=== PATIENT | female | born 1985 | race Caucasian/White ===

== ENCOUNTER → 2018-01-25 16:15 | Outpatient (CLI) | payer OTHER, SELFPAY ==
[2018-01-25 19:04] LABS: Chlamydia Trachomatis by PCR Negative (Negative); Neisserai gonorrhoeae by PCR Negative (Negative); Probe Check PASS; Sample Adequacy Control PASS; Specimen Processing Control PASS
[2018-01-28 10:20] LABS: HPV Reflexed? NOT INDICATED
== END ==
PROVIDERS: Visit Provider Obstetrics & Gynecology
DX: Z12.4 Encounter for screening for malignant neoplasm of cervix (principal); Z11.3 Encounter for screening for infections with a predominantly sexual mode of transmission
CPT/HCPCS: 87491; 87591; 88175; G0145

== ENCOUNTER → 2018-02-09 11:06 | Outpatient (CLI) | payer OTHER, SELFPAY ==
[2018-02-09 12:55] LABS: Color, Urine Yellow (Yellow); Glucose, Dipstick Normal (Normal); Ketone-Dipstick Negative (Negative); Leukocyte Esterase-Dipstick Negative /ul (Negative); Nitrite-Dipstick Negative (Negative); Occult Blood-Urine Negative /ul (Negative); Protein-Dipstick Negative (Negative); Specific Gravity, Urine 1.005 (1.002-1.030); Urine Bilirubin Dipstick Negative (Negative); Urine Clarity Clear (Clear); Urine Urobilinogen Normal (Normal)
[2018-02-09 13:06] LABS: Absolute Neutrophil Count 5.6 X10^3/uL (2.0-7.7); Basophil# 0.02 X10^3/uL; Basophil% 0.3 % (0-1); Eosinophil# 0.01 X10^3/uL; Eosinophils% 0.1 % (0-5); Hematocrit 34.7 % (37-47); Hemoglobin 11.8 g/dl (12.0-15.0); Lymphocyte % 16.3 % (19-41); Mean Corpuscular Hgb 27.8 pg (27.0-32.0); Mean Corpuscular Volume 81.6 fL (81-99); Mean Platelet Vol. 10.7 fl (6.2-12.0); Monocyte# 0.48 X10^3/uL; Monocyte% 6.5 % (0-10); Neutrophil # 5.62 X10^3/uL (2.7-7.7); Neutrophil % 76.5 % (47-70); Platelet Count 259 K/mm3 (150-450); RBC Distribution Width CV 12.7 % (11.6-14.6); RBC Distribution Width SD 37.4 fl (35.1-43.9); Red Blood Count 4.25 M/mm3 (4.2-5.4); White Blood Count 7.4 K/mm3 (4.4-11.0)
[2018-02-09 13:07] LABS: Amphetamine Urine VISTA NEGATIVE (<1000 ng/mL); Barbiturate Urine VISTA NEGATIVE (< 200 ng/mL); Benzodiazepine Urine VISTA NEGATIVE (< 200 ng/mL); Cocaine Urine VISTA NEGATIVE (< 300 ng/mL); Ecstacy Urine VISTA NEGATIVE (< 500 ng/mL); Methadone Urine VISTA NEGATIVE (< 300 ng/mL); PCP Urine VISTA NEGATIVE (< 25 ng/mL); THC Urine VISTA NEGATIVE (< 50 ng/mL); Vista UDS pH Range 7
[2018-02-09 13:14] LABS: POSITIVE COUNT NO; POSITIVE DIFFERENTIAL NO; POSITIVE MORPHOLOGY NO
[2018-02-09 13:19] LABS: Thyroid Stim Hormone (TSH) 0.49 uIU/mL (0.358-3.74)
[2018-02-10 10:19] LABS: HEPATITIS B SURFACE AG Negative (Negative); Hep C Antibodies <0.1 s/co ratio (0.0-0.9)
[2018-02-10 11:27] LABS: HIV - WCH Non-Reactive (Nonreactive)
[2018-02-12 01:20] LABS: Prenatal RPR NONREACTIVE (NONREACTIVE)
== END ==
PROVIDERS: Visit Provider Obstetrics & Gynecology
DX: Z34.81 Encounter for supervision of other normal pregnancy, first trimester (principal)
CPT/HCPCS: 36415; 80307; 81002; 84443; 85025; 86703; 86762; 86803; 87340

== ENCOUNTER → 2018-05-28 11:08 | Outpatient (CLI) | payer OTHER, SELFPAY ==
[2018-05-28 13:36] LABS: Hematocrit 33.3 % (37-47); Mean Corpuscular Hgb 28.4 pg (27.0-32.0); Mean Corpuscular Volume 85.8 fL (81-99); Mean Platelet Vol. 10.3 fl (6.2-12.0); Platelet Count 255 K/mm3 (150-450); RBC Distribution Width CV 12.9 % (11.6-14.6); RBC Distribution Width SD 39.6 fl (35.1-43.9); Red Blood Count 3.88 M/mm3 (4.2-5.4); White Blood Count 9.6 K/mm3 (4.4-11.0)
[2018-05-28 13:41] LABS: Scan Indicated on CBC? Y/N NO
[2018-05-28 13:42] LABS: Glucose Challenge Gest 1H 50g 88 mg/dL (70-140)
== END ==
PROVIDERS: Visit Provider Obstetrics & Gynecology
DX: Z34.83 Encounter for supervision of other normal pregnancy, third trimester (principal)
CPT/HCPCS: 82950; 85027

== ENCOUNTER → 2018-07-23 13:14 | Outpatient (CLI) | payer OTHER, SELFPAY ==
[2018-07-23 16:23] LABS: Group B Strep DNA By PCR POSITIVE (Negative); Probe Check PASS
== END ==
PROVIDERS: Visit Provider Obstetrics & Gynecology
DX: Z36.85 Encounter for antenatal screening for Streptococcus B (principal)
CPT/HCPCS: 87653

== ENCOUNTER 2018-08-17 09:55 | Inpatient (IN) | payer OTHER, SELFPAY ==
[2018-08-10 09:22] VITALS: BMI 34.9
[2018-08-17] VITALS (15 sets, daily range): BP systolic 102–199; BP diastolic 59–84; PULSE 67–86; RESP 12–16; TEMP 36.1–36.7; O2SAT 98–100; BMI 35.0
[2018-08-17] MEDS: Lactated Ringers 1,000 ML 999 ML IV (11:15)
[2018-08-17 11:34] LABS: Absolute Lymphocyte Count 1.48 X10^3/ul (0.83-4.51); Absolute Neutrophil Count 7.8 X10^3/uL (2.0-7.7); Basophil# 0.01 X10^3/uL; Basophil% 0.1 % (0-1); Eosinophil# 0.03 X10^3/uL; Eosinophils% 0.3 % (0-5); Hematocrit 36.3 % (37-47); Hemoglobin 12.2 g/dl (12.0-15.0); Lymphocyte # 1.48 X10^3/ul (4.0); Lymphocyte % 14.6 % (19-41); Mean Corp Hgb Conc 33.6 g/gl (32-36); Mean Corpuscular Hgb 28.3 pg (27.0-32.0); Mean Corpuscular Volume 84.2 fL (81-99); Mean Platelet Vol. 10.3 fl (6.2-12.0); Monocyte# 0.71 X10^3/uL; Neutrophil # 7.83 X10^3/uL (2.7-7.7); Neutrophil % 77.3 % (47-70); Platelet Count 241 K/mm3 (150-450); RBC Distribution Width CV 12.5 % (11.6-14.6); RBC Distribution Width SD 37.9 fl (35.1-43.9); Red Blood Count 4.31 M/mm3 (4.2-5.4); White Blood Count 10.1 K/mm3 (4.4-11.0)
[2018-08-17 11:38] LABS: POSITIVE COUNT NO; POSITIVE DIFFERENTIAL NO; POSITIVE MORPHOLOGY NO
[2018-08-17 11:55] LABS: Partial Thromboplast Time 25.7 Seconds (24.1-36.2); Prothrombin Time (Protime)PT. 13.5 SECONDS (11.7-14.9)
[2018-08-17] MEDS: Sodium Citrate/Citric Acid 30 ML UDC PO (11:55)
[2018-08-17] MEDS: Cefazolin 2 GM in 0.9% Normal Saline 100 ML IV (12:04)
--- NOTE | 2018-08-17 12:07 | PCM.OPRPT ---
Report of Operation Date of Procedure: 08/17/18 Pre-Operative Diagnosis: Previous section for repeat and requests sterilization Post-Operative Diagnosis: Same Surgery/Procedure Performed:: Repeat Low Transverse sSection and bilateral Salpingectomy Description of Surgical Findings:: Normal appearing uterus, ovaries, and fallopian tubes. Live female in vertex presentation weighing 8lb7oz. Amniotic fluid clear. APGARs 8/9. network services project manager: Katherine Villagomez Type of Anesthesia:: Spinal Anesthesiologist: Gelacio Camp Special Medications: none Specimen's removed: fallopian tubes Drains: fernandez Estimated Blood Loss (mL): 500cc Fluids Replaced: 1500cc LR Description of Procedure: Zohreh reafirmed her desire for permanent sterilization prior to the procedure. SHe was taken to the OR with IV running. Spinal anesthesia was introduced without complication. She was given two grams of Ancef intravenously prior to the procedure for surgical prophylaxis. She was prepped and draped in the supine position with a leftward tilt. A fernandez catheter was placed. Once anesthesia was deemed adequate a Pfannensteil skin incision was made through the previous scar. The underlying subcutaneous tissue was dissected down to the level of fascia using sharp and blunt dissection. The fascia was incised horizontally in the midline and this incision was enlarged bilaterally with the Irene scissors. The upper portion of the fascial defect was then grasped with two Jack clamps, elevated and the rectus muscles dissected off with sharp and blunt dissection. In a similar fashion the rectus muscles were dissected off the lower fascial defect. The rectus muscles were in the midline, the peritoneum identified and entered bluntly. The peritoneal defect was enlarged using blunt retraction. A bladder blade was the placed. A bladder flap created. The bladder blade replaced. The lower uterine segment was then incised in a transverse fashion with the scalpel. Once the cavity was entered it was enlarged using blunt lateral and superior traction. The baby's head was then delivered atraumatically followed by the body. The mouth was suctioned with a bulb suction. There was an active cry within one minute of delivery. Delayed cord clamping was employed. The baby was then handed off to the waiting nurse for evaluation. The placenta was delivered manually, the uterus exteriorized, and cleared of all clot and membranes. The uterus was then closed in two layers with #1 Vicryl suture. The right fallopian tube was then grasped with a Guthrie clamp and elevated. A rent was made in the mesosalpinx with the bovie. The right fallopian tube was then clamped at the proximal end and the mesosalpinx from the fimbria end to the rent clamped with a Ghada clamp. The tube was then amputated. The pedicles were tied with 2-0 vicryl suture. In a similar fashion the left fallopian tube was dissected and removed. The posterior cul de sac was cleared of all clot and fluid and the uterus returned to the abdomen. The uterine incision was reinspected and found to be hemostatic. The peritoneum was closed with a running stich of 2-0 Vicryl. The rectus muscles were reapproximated with interrupted sutures of 0-Vicryl. The fascia was closed with a running stitch of #1. Stratofix suture. The subcutaneous tissue was closed with 2-0 Vicryl The skin was closed with a subcuticular stitch of 4-0 Monocryl. Sponge, lap, needle and instrument counts were correct. She was taken to the recovery room in stable condition. Grafts/Implants Used: none - Complications none - Admit VTE Documentation VTE Present on Admission: No VTE Mechan Device Prophylaxis: SCD's VTE Pharm Prophylaxis ordered?: No
[2018-08-17] MEDS: Lactated Ringers 1,000 ML 150 ML IV (12:10)
--- NOTE | 2018-08-17 12:22 | FALS_PTH ---
PATIENT: BRIA GONZALEZ LOC: [facility] U#:[id number] AGE/SX: 33/F ROOM: WP006 RE08/17/[address]: Dr. Artie Betancourt MD : 1985 BED: 1 DIS: 08/19/2018 SPEC #: [id number] RECD: 08/17/18 13:29 STATUS: HAI SAE #: [id number] ZAYDA: 08/17/18 12:[address]: Artie Betancourt DEPT: SURGICAL PATHOLOGY RECD BY: Jered Coleman ENTERED: 08/17/18 14:06 SP TYPE: FALL TUBES OTHR DR: No Primary Care Phys Tissues: Fallopian tube Procedures: Surgery Specimen Level II HEADER OPERATION: Tubal ligation PRE-OP DIAGNOSIS: Desired sterilization TISSUE SUBMITTED: Fallopian tubes, suture in right tube MICROSCOPIC DIAGNOSIS Right and left fallopian tubes, bilateral salpingectomies: Complete segment of right fallopian tube with benign paratubal cyst. Complete segment of left fallopian tube with benign paratubal cyst. AM:jason 08/18/18 MICROSCOPIC DESCRIPTION Slides are reviewed. GROSS DESCRIPTION Received is one container labeled with the patient's name and designated left fallopian tube with suture, right fallopian tube no suture. The specimen consists of two tubular pieces of centeno soft tissue with the left tube identified by a suture and measures 4.5 cm in length and 0.5 cm in diameter. The right tube without suture measures 2 cm in length and 0.5 cm in diameter. A paratubal cyst is noted adjacent to the right fallopian tube measuring 1.5 cm in greatest dimension. The entire specimen is submitted in two cassettes as follows: 1 - right fallopian tube, 2 - left fallopian tube. Both pieces will be sectioned at the time of embedding. / SJ:jason 08/17/18 TC:5 CPT: 05104 x2
[2018-08-17] MEDS: Oxytocin 30 units/NS 500 ml 30 UNITS/500 ML IV.SOLN 167 UNITS IV (12:23)
[2018-08-17] MEDS: 0.9% Saline Lock 10 ML Syringe IV (18:05)
[2018-08-17] MEDS: Lactated Ringers 1,000 ML 100 ML IV (18:05)
[2018-08-17] MEDS: Ketorolac 30 MG/ML Syringe IV (18:05)
[2018-08-17] MEDS: Cefazolin 1 GM/50 ML BAG IV (19:22)
[2018-08-18] VITALS (10 sets, daily range): BP systolic 104–124; BP diastolic 63–73; PULSE 66–87; RESP 16–18; TEMP 36.4–37.2; O2SAT 98–100
[2018-08-18] MEDS: Ketorolac 30 MG/ML Syringe IV ×4 (00:16→18:42)
[2018-08-18] MEDS: Acetaminophen 500 MG Tablet 1000 MG PO (03:10)
[2018-08-18] MEDS: Cefazolin 1 GM/50 ML BAG IV (03:10)
[2018-08-18] MEDS: Lactated Ringers 1,000 ML 100 ML IV (03:11)
[2018-08-18 06:11] LABS: Hemoglobin 10.9 g/dl (12.0-15.0); Mean Corpuscular Hgb 27.8 pg (27.0-32.0); Mean Corpuscular Volume 84.2 fL (81-99); Mean Platelet Vol. 9.8 fl (6.2-12.0); Platelet Count 213 K/mm3 (150-450); RBC Distribution Width CV 12.9 % (11.6-14.6); RBC Distribution Width SD 39.2 fl (35.1-43.9); Red Blood Count 3.92 M/mm3 (4.2-5.4); White Blood Count 10.9 K/mm3 (4.4-11.0)
[2018-08-18 06:25] LABS: Scan Indicated on CBC? Y/N NO
[2018-08-18] MEDS: Ferrous Gluconate 324 MG Tablet 325 MG PO (08:50)
[2018-08-18] MEDS: 0.9% Saline Lock 10 ML Syringe IV ×3 (08:51→18:42)
--- NOTE | 2018-08-18 09:42 | PCM.PN.OB ---
Subjective: No complaints. Tolerating PO well. Breast feeding. Bleeding light. Objective: Afeb VSS Hgb appropriate POD#1. - Physical Exam General: Alert, Oriented x3, Cooperative, No apparent distress Lungs: Clear to auscultation, Normal air movement Cardiovascular: Regular rate, Regular Rhythm Abdomen: Soft, Non Tender, Non-Distended, - - Fundus firm, incision dressing dry Extremities: No edema Skin: No rashes Neurological: Neuro grossly intact Psych/Mental Status: Normal Affect Comment: Lochia light Vital Signs Temp Pulse Resp BP Pulse Ox 98.0 F 72 16 104/63 100 08/18/18 09:13 08/18/18 09:13 08/18/18 09:13 08/18/18 09:13 08/18/18 09:13 Oxygen Delivery Method Room Air Weight: 223 lb 12.307 oz Body Mass Index (BMI) 35.0 Intake and Output for Last 24 Hours 08/16/18 08/17/18 08/18/18 23:59 23:59 23:59 Intake Total 3656 / 3656 1660 / 1660 Output Total 800 / 800 1700 / 1700 Balance 2856 / 2856 -40 / -40 Laboratory Tests Past 24 Hrs 08/17/18 08/17/18 08/17/18 11:15 11:15 11:15 WBC 10.1 RBC 4.31 Hgb 12.2 Hct 36.3 L MCV 84.2 MCH 28.3 MCHC 33.6 RDW 12.5 RDW Differential 37.9 Plt Count 241 MPV 10.3 Immature Gran % (Auto) 0.700 Neut % (Auto) 77.3 H Lymph % (Auto) 14.6 L [place] % (Auto) 7.0 Eos % (Auto) 0.3 Baso % (Auto) 0.1 Absolute Neuts (auto) 7.8 H Absolute Lymphs (auto) 1.48 Total Counted Not Reportable PT 13.5 INR 1.0 APTT 25.7 Blood Type A POSITIVE Antibody Screen NEGATIVE 08/18/18 05:20 WBC 10.9 RBC 3.92 L Hgb 10.9 L Hct 33.0 L MCV 84.2 MCH 27.8 MCHC 33.0 RDW 12.9 RDW Differential 39.2 Plt Count 213 MPV 9.8 Immature Gran % (Auto) Neut % (Auto) Lymph % (Auto) [place] % (Auto) Eos % (Auto) Baso % (Auto) Absolute Neuts (auto) Absolute Lymphs (auto) Total Counted PT INR APTT Blood Type Antibody Screen Medical Necessity - Tobacco Use Smoking Status: Former smoker Assessment/Plan Doing well on POD#1. D/C fernandez catheter later today. Continue routine PO care.
[2018-08-18] MEDS: Prenatal Vits Tablet 1 TABLET PO (12:51)
[2018-08-18] MEDS: oxyCODONE 5 MG Tablet PO ×2 (14:04→18:41)
[2018-08-18 14:38] LABS: Pathology Specimen OB SEE PATHOLOGY REPORT
[2018-08-18] MEDS: Ferrous Gluconate 324 MG Tablet PO (18:42)
[2018-08-18] MEDS: Senna/Docusate Sodium 1 Tablet PO (18:43)
[2018-08-19] MEDS: 0.9% Saline Lock 10 ML Syringe IV ×3 (00:18→12:09)
[2018-08-19] MEDS: Ketorolac 30 MG/ML Syringe IV ×3 (00:18→12:09)
[2018-08-19] MEDS: oxyCODONE 5 MG Tablet PO ×2 (00:18→12:09)
[2018-08-19 01:50] VITALS: BP 126/72; PULSE 84; RESP 17; TEMP 37.2
--- NOTE | 2018-08-19 07:26 | PCM.PN.OB ---
Subjective: No specific complaints. Pain reasonably controlled. Bleeding light. Breast feeding. Objective: Afeb VSS - Physical Exam General: Alert, Oriented x3, Cooperative, No apparent distress Lungs: Clear to auscultation, Normal air movement Cardiovascular: Regular rate, Regular Rhythm Abdomen: Soft, Non Tender, Non-Distended, - - Incision dressing dry Extremities: No edema Skin: No rashes Neurological: Neuro grossly intact Psych/Mental Status: Normal Affect Comment: Lochia light Vital Signs Temp Pulse Resp BP Pulse Ox 99.0 F 84 17 126/72 H 99 08/19/18 01:50 08/19/18 01:50 08/19/18 01:50 08/19/18 01:50 08/18/18 20:35 Oxygen Delivery Method Room Air Weight: 223 lb 12.307 oz Body Mass Index (BMI) 35.0 Intake and Output for Last 24 Hours 08/17/18 08/18/18 08/19/18 23:59 23:59 23:59 Intake Total 3656 / 3656 2640 / 2640 Output Total 800 / 800 3200 / 3200 Balance 2856 / 2856 -560 / -560 Medical Necessity - Tobacco Use Smoking Status: Former smoker Assessment/Plan Doing well on POD#2 s/p repeat C/S and bilateral salpingectomy. Cleared for discharge home today. Home going instructions and warnings given.
--- NOTE | 2018-08-19 07:32 | DCINST_ITS ---
Discharge Diet: No Restrictions Discharge Activity: Return to Normal Activity, May Not Drive, May not drive while taking narcotic pain medications., May Shower Return to work on:: 10/19/18 May shower in (days): 0 May resume sexual activity in: 4-6 weeks Call your doctor if your incision/area has: Sudden Increased Bleeding, Increased Pain/ Swelling, Increased Redness, Foul Smelling Discharge, Swelling at the incision site Call your doctor if you observe: Fever of 101 or Higher, Inability to urinate, Inability to have a bowel movement, Using more than one pad per hour, Shortness of breath, Chest pain, Calf discomfort, Uncontrolled pain Remove Dressing in (days):: 2 Cleanse incision/area with: Soap & Water Additional Instructions: If you experience any of the following, contact your healthcare provider. * Bleeding that soaks a pad every hour for 2 hours * Fever 100.4 or higher * Unrelieved incision or abdominal pain * Swelling, redness, discharge or bleeding from your incision or episiotomy site * Your incision begins to separate * Problems urinating (including inability to urinate or burning while uri nating). * Visual changes * Severe headache * Flu-like symptoms * Pain or redness in one of both of your breasts * Pain, warmth, tenderness or swelling in your legs, especially the calf area * Frequent nausea and vomiting * Symptoms of depression or anxiety If you experience any of the following, call 911 or go to the nearest Emergency Room. * Chest pain * Problems breathing * Seizure activity * Partial or complete paralysis of a body part, slurred speech, weakness or drooping of the face, or a sudden inability to walk or hold your balance Allergies/Adverse Reactions: Allergies No Known Allergies Allergy (Verified 08/17/18 10:07) Medications to take at Discharge Vits [Prenatabs FA ] 1 tablet PO DAILY 12/03/14 Ferrous Gluconate 325 mg PO BIDCM 08/10/18 Ibuprofen 600 mg PO 4X/DAY #30 tab 08/19/18 Oxycodone [Oxyir] 5 - 10 mg PO Q4H PRN PRN 7 Days #20 tab 08/19/18 The following prescriptions were given: Oxycodone [Oxyir] 5 - 10 mg PO Q4H PRN PRN 7 Days #20 tab PRN Reason: Mod-Severe Pain (4-06/30) Ibuprofen 600 mg PO 4X/DAY #30 tab Follow-Up: Call to make an appointment with your doctor for an incision check in 1-2 weeks. You will also need a 6 week post- follow up appointment. Test results from this visit will be discussed in further detail at your follow- up appointment, if applicable. Please Follow Up With: Artie Betancourt MD When: one week Primary Care Physician: Care Physician,No Primary [Primary Care Provider] - Proposed Discharge Date: 08/19/18
--- NOTE | 2018-08-19 07:32 | PCM.DC.SUM ---
Discharge Date and Diagnosis Date of Admission: 08/17/18 Date of Discharge: 08/19/18 - Primary Discharge Diagnosis S/P repeat C/S and bilateral salpingectomy Hospital Course and Treatment Operations: - - Repeat C/S and bilateral salpingectomy Summary of Care Provided: The patient is a 33 year old F [admitted for scheduled repeat ZC/S and bilateral salpingectomy. These were performed without complication. Post operative course was unremarkable. Discharged home on POD#2.] - Physical Exam Vital Signs Temp Pulse Resp BP Pulse Ox 99.0 F 84 17 126/72 H 99 08/19/18 01:50 08/19/18 01:50 08/19/18 01:50 08/19/18 01:50 08/18/18 20:35 Oxygen Delivery Method Room Air Weight: 223 lb 12.307 oz Body Mass Index (BMI) 35.0 Intake and Output for Last 24 Hours 08/17/18 08/18/18 08/19/18 23:59 23:59 23:59 Intake Total 3656 / 3656 2640 / 2640 Output Total 800 / 800 3200 / 3200 Balance 2856 / 2856 -560 / -560 Discharge Diet: No Restrictions Discharge Activity: Return to Normal Activity, May Not Drive, May not drive while taking narcotic pain medications., May Shower Return to work on:: 10/19/18 May shower in (days): 0 May resume sexual activity in: 4-6 weeks Call your doctor if your incision/area has: Sudden Increased Bleeding, Increased Pain/ Swelling, Increased Redness, Foul Smelling Discharge, Swelling at the incision site Call your doctor if you observe: Fever of 101 or Higher, Inability to urinate, Inability to have a bowel movement, Using more than one pad per hour, Shortness of breath, Chest pain, Calf discomfort, Uncontrolled pain Remove Dressing in (days):: 2 Cleanse incision/area with: Soap & Water Home Medications: Medications to take at Discharge Vits [Prenatabs FA ] 1 tablet PO DAILY 12/03/14 Ferrous Gluconate 325 mg PO BIDCM 08/10/18 Ibuprofen 600 mg PO 4X/DAY #30 tab 08/19/18 Oxycodone [Oxyir] 5 - 10 mg PO Q4H PRN PRN 7 Days #20 tab 08/19/18 Following Prescrptions Were Given to Patient: Oxycodone [Oxyir] 5 - 10 mg PO Q4H PRN PRN 7 Days #20 tab PRN Reason: Mod-Severe Pain (-06/30) Ibuprofen 600 mg PO 4X/DAY #30 tab Primary Care Physician: Care Physician,No Primary [Primary Care Provider] - Please Follow Up With: Artie Betancourt MD When: one week Disposition: Home Minutes spent on discharge:: 15 Patient Condition:: Good Medical Necessity - Tobacco Use Smoking Status: Former smoker Meaningful Use Info Meaningful Use Diagnoses (Choose all that apply): None applicable
[2018-08-19 08:10] VITALS: BP 122/77; PULSE 78; RESP 16; TEMP 36.6; O2SAT 98
[2018-08-19] MEDS: Ferrous Gluconate 324 MG Tablet PO (10:06)
[2018-08-19] MEDS: Prenatal Vits Tablet 1 TABLET PO (10:06)
--- OUTSIDE RECORDS SUMMARY | 2018-09-29 01:11 | XMS RPT_ITS ---
:1985 Author Organization [facility] Care Team Providers Name Role Phone Artie Betancourt Attending Unavailable Primay Care Physicia, No Primary Care Unavailable Seals, Artie Attending Unavailable Primay Care Physicia, No Primary Care Unavailable Seals, Artie Attending Unavailable Primay Care Physicia, No Primary Care Unavailable Seals, Artie Attending Unavailable Primay Care Physicia, No Primary Care Unavailable SealsArtie Admitting Unavailable Seals, Artie Attending Unavailable Primay Care Physicia, No Primary Care Unavailable SealsArtie Referring Unavailable PROBLEMS PROBLEMS DATE TYPE CONDITION / CODE ATTENDING STATUS SOURCE 08/20/2018 Unknown G89.18 - Other acute Seals, Artie Active [facility] postprocedural pain [facility] / G89.18(ICD-10) Hospital Repository 07/23/2018 Unknown Z36.85 - Encounter Artie Betancourt for Community screening for Hospital Streptococcus B / Repository Z36.85(ICD-10) 05/28/2018 Unknown Z34.83 - Encounter SealArtie santillan Active [facility] for supervision of Community other normal Hospital , third Repository trimester / Z34.83(ICD-10) 02/09/2018 Unknown Z34.81 - Encounter SealArtie santillan Active [facility] for supervision of Community other normal Hospital , first Repository trimester / Z34.81(ICD-10) 01/25/2018 Unknown Z12.4 - Encounter SealsArtie for screening for Community malignant neoplasm Hospital of cervix / Repository Z12.4(ICD-10) 01/25/2018 Unknown Z11.3 - Encounter SealArtie santillan for screening for Community infections with a Hospital predominantly sexual Repository mode of transmission / Z11.3(ICD-10) PROCEDURES PROCEDURES No Procedure Records FoundRESULTS RESULTS DISCHARGE SUMMARY Observed: 08/19/2018 Status: F Source: [place] 7:34 AM [facility] REPOSITORY [facility] Medical Records Department [address] [place] [address] Discharge Summary 08/19/18 0732 MR#: [id number] Acct: [id number] Name: BRIA BARRY Rep #: [id number] : 1985 33 From: Artie Betancourt MD PCP: Care Physician, No Primary Status: ADM IN Location: [place] [address] Discharge Date and Diagnosis Date of Admission: 08/17/18 Date of Discharge: 08/19/18 - Primary Discharge Diagnosis S/P repeat C/S and bilateral salpingectomy Hospital Course and Treatment Operations: - - Repeat C/S and bilateral salpingectomy Summary of Care Provided: The patient is a 33 year old F [admitted for scheduled repeat ZC/S and bilateral salpingectomy. These were performed without complication. Post operative course was unremarkable. Discharged home on POD#2.] - Physical Exam Vital Signs Temp Pulse Resp BP Pulse Ox 99.0 F 84 17 126/72 H 99 08/19/18 01:50 08/19/18 01:50 08/19/18 01:50 08/19/18 01:50 08/18/18 20:35 Oxygen Delivery Method Room Air Weight: 223 lb 12.307 oz Body Mass Index (BMI) 35.0 Intake and Output for Last 24 Hours Intake Total 3656 / 3656 2640 / 2640 Output Total 800 / 800 3200 / 3200 Balance 2856 / 2856 -560 / -560 Discharge Diet: No Restrictions Discharge Activity: Return to Normal Activity, May Not Drive, May not drive while taking narcotic pain medications., May Shower Return to work on:: 10/19/18 May shower in (days): 0 May resume sexual activity in: 4-6 weeks Call your doctor if your incision/area has: Sudden Increased Bleeding, Increased Pain/ Swelling, Increased Redness, Foul Smelling Discharge, Swelling at the incision site Call your doctor if you observe: Fever of 101 or Higher, Inability to urinate, Inability to have a bowel movement, Using more than one pad per hour, Shortness of breath, Chest pain, Calf discomfort, Uncontrolled pain Remove Dressing in (days):: 2 Cleanse incision/area with: Soap AND Water Home Medications: Medications to take at Discharge Vits [Prenatabs FA ] 1 tablet PO DAILY 12/03/14 Ferrous Gluconate 325 mg PO BIDCM 08/10/18 Ibuprofen 600 mg PO 4X/DAY #30 tab 08/19/18 Oxycodone [Oxyir] 5 - 10 mg PO Q4H PRN PRN 7 Days #20 tab 08/19/18 Following Prescrptions Were Given to Patient: Oxycodone [Oxyir] 5 - 10 mg PO Q4H PRN PRN 7 Days #20 tab PRN Reason: Mod-Severe Pain () Ibuprofen 600 mg PO 4X/DAY #30 tab Primary Care Physician: Care Physician,No Primary [Primary Care Provider] - Please Follow Up With: Artie Betancourt MD When: one week Disposition: Home Minutes spent on discharge:: 15 Patient Condition:: Good Medical Necessity - Tobacco Use Smoking Status: Former smoker Meaningful Use Info Meaningful Use Diagnoses (Choose all that apply): None applicable 08/19/18 0334 <Electronically signed by Artie Betancourt MD> Date Artie Betancourt MD Cosigner Signature (if applicable): Date CC: No Primary Care Physician; Artie Betancourt MD Signed DISCHARGE INSTRUCTION Observed: 08/19/2018 Status: F Source: [place] 7:32 AM [facility] REPOSITORY [facility] Medical Records Department [address] [place] [address] Instructions for Home/Discharge Instructions 08/19/18 0731 MR#: [id number] Acct: [id number] Name: BRIA BARRY Rep #: [id number] : 1985 33 From: Artie Betancourt MD PCP: Care Physician, No Primary Status: ADM IN Discharge Diet: No Restrictions Discharge Activity: Return to Normal Activity, May Not Drive, May not drive while taking narcotic pain medications., May Shower Return to work on:: 10/19/18 May shower in (days): 0 May resume sexual activity in: 4-6 weeks Call your doctor if your incision/area has: Sudden Increased Bleeding, Increased Pain/ Swelling, Increased Redness, Foul Smelling Discharge, Swelling at the incision site Call your doctor if you observe: Fever of 101 or Higher, Inability to urinate, Inability to have a bowel movement, Using more than one pad per hour, Shortness of breath, Chest pain, Calf discomfort, Uncontrolled pain Remove Dressing in (days):: 2 Cleanse incision/area with: Soap AND Water Additional Instructions: If you experience any of the following, contact your healthcare provider. * Bleeding that soaks a pad every hour for 2 hours * Fever 100.4 or higher * Unrelieved incision or abdominal pain * Swelling, redness, discharge or bleeding from your incision or episiotomy site * Your incision begins to separate * Problems urinating (including inability to urinate or burning while urinating). * Visual changes * Severe headache * Flu-like symptoms * Pain or redness in one of both of your breasts * Pain, warmth, tenderness or swelling in your legs, especially the calf area * Frequent nausea and vomiting * Symptoms of depression or anxiety If you experience any of the following, call 911 or go to the nearest Emergency Room. * Chest pain * Problems breathing * Seizure activity * Partial or complete paralysis of a body part, slurred speech, weakness or drooping of the face, or a sudden inability to walk or hold your balance Allergies/Adverse Reactions: Allergies No Known Allergies Allergy (Verified 08/17/18 10:07) Medications to take at Discharge Vits [Prenatabs FA ] 1 tablet PO DAILY 12/03/14 Ferrous Gluconate 325 mg PO BIDCM 08/10/18 Ibuprofen 600 mg PO 4X/DAY #30 tab 08/19/18 Oxycodone [Oxyir] 5 - 10 mg PO Q4H PRN PRN 7 Days #20 tab 08/19/18 The following prescriptions were given: Oxycodone [Oxyir] 5 - 10 mg PO Q4H PRN PRN 7 Days #20 tab PRN Reason: Mod-Severe Pain (4-06/30) Ibuprofen 600 mg PO 4X/DAY #30 tab Follow-Up: Call to make an appointment with your doctor for an incision check in 1-2 weeks. You will also need a 6 week post- follow up appointment. Test results from this visit will be discussed in further detail at your follow-up appointment, if applicable. Please Follow Up With: Artie Betancourt MD When: one week Primary Care Physician: Care Physician,No Primary [Primary Care Provider] - Proposed Discharge Date: 08/19/18 08/19/18 0732 <Electronically signed by Artie Betancourt MD> Date Artie Betancourt MD CC: No Primary Care Physician OPERATIVE REPORT Observed: 08/18/2018 Status: F Source: [place] 9:48 AM [facility] REPOSITORY [facility] Medical Records Department [address] [place] [address] Operative Report 08/17/18 1207 MR#: [id number] Acct: [id number] Name: BRIA BARRY MARTIN Rep #: [id number] : 1985 33 From: Artie Betancourt MD PCP: Care Physician, No Primary Status: ADM IN Y Location: [id number] Report of Operation Date of Procedure: 08/17/18 Pre-Operative Diagnosis: Previous section for repeat and requests sterilization Post-Operative Diagnosis: Same Surgery/Procedure Performed:: Repeat Low Transverse sSection and bilateral Salpingectomy Description of Surgical Findings:: Normal appearing uterus, ovaries, and fallopian tubes. Live female in vertex presentation weighing 8lb7oz. Amniotic fluid clear. APGARs 8/9. multi skilled operator: Katherine Villagomez Type of Anesthesia:: Spinal Anesthesiologist: Gelacio Camp Special Medications: none Specimen's removed: fallopian tubes Drains: fernandez Estimated Blood Loss (mL): 500cc Fluids Replaced: 1500cc LR Description of Procedure: Bria reafirmed her desire for permanent sterilization prior to the procedure. SHe was taken to the OR with IV running. Spinal anesthesia was introduced without complication. She was given two grams of Ancef intravenously prior to the procedure for surgical prophylaxis. She was prepped and draped in the supine position with a leftward tilt. A fernandez catheter was placed. Once anesthesia was deemed adequate a Pfannensteil skin incision was made through the previous scar. The underlying subcutaneous tissue was dissected down to the level of fascia using sharp and blunt dissection. The fascia was incised horizontally in the midline and this incision was enlarged bilaterally with the Irene scissors. The upper portion of the fascial defect was then grasped with two Jack clamps, elevated and the rectus muscles dissected off with sharp and blunt dissection. In a similar fashion the rectus muscles were dissected off the lower fascial defect. The rectus muscles were in the midline, the peritoneum identified and entered bluntly. The peritoneal defect was enlarged using blunt retraction. A bladder blade was the placed. A bladder flap created. The bladder blade replaced. The lower uterine segment was then incised in a transverse fashion with the scalpel. Once the cavity was entered it was enlarged using blunt lateral and superior traction. The baby's head was then delivered atraumatically followed by the body. The mouth was suctioned with a bulb suction. There was an active cry within one minute of delivery. Delayed cord clamping was employed. The baby was then handed off to the waiting nurse for evaluation. The placenta was delivered manually, the uterus exteriorized, and cleared of all clot and membranes. The uterus was then closed in two layers with #1 Vicryl suture. The right fallopian tube was then grasped with a Izabella clamp and elevated. A rent was made in the mesosalpinx with the bovie. The right fallopian tube was then clamped at the proximal end and the mesosalpinx from the fimbria end to the rent clamped with a Ghada clamp. The tube was then amputated. The pedicles were tied with 2-0 vicryl suture. In a similar fashion the left fallopian tube was dissected and removed. The posterior cul de sac was cleared of all clot and fluid and the uterus returned to the abdomen. The uterine incision was reinspected and found to be hemostatic. The peritoneum was closed with a running stich of 2-0 Vicryl. The rectus muscles were reapproximated with interrupted sutures of 0-Vicryl. The fascia was closed with a running stitch of #1. Stratofix suture. The subcutaneous tissue was closed with 2-0 Vicryl The skin was closed with a subcuticular stitch of 4-0 Monocryl. Sponge, lap, needle and instrument counts were correct. She was taken to the recovery room in stable condition. Grafts/Implants Used: none - Complications none - Admit VTE Documentation VTE Present on Admission: No VTE Mechan Device Prophylaxis: SCD's VTE Pharm Prophylaxis ordered?: No 08/18/18 0948 <Electronically signed by Artie Betancourt MD> Date Artie Betancourt MD CC: No Primary Care Physician; Artie Betancourt MD Signed CBC-COMPLETE BLOOD CNT Collected: 08/18/2018 Status: F Source: [place] NO DIFF 5:20 AM [facility] REPOSITORY Order Comment: Comments: Day #1 Reason for Laboratory Test TYPE CODE TESTS RESULT OUT OF RANGE REFERENCE UNITS LAB L100.1000 4.4-11.0 K/mm3 Normal WBC 10.9 LAB L100.1200 4.2-5.4 M/mm3 Low RBC 3.92 LAB L100.1300 12.0-15.0 g/dl Low HGB 10.9 LAB L100.1400 37-47 % Low HCT 33.0 LAB L100.1500 81-99 fL Normal MCV 84.2 LAB L100.1600 27.0-32.0 pg Normal MCH 27.8 LAB L100.1700 32-36 g/gl Normal MCHC 33.0 LAB L100.1810 11.6-14.6 % Normal RDW CV 12.9 LAB L100.1820 35.1-43.9 fl Normal RDW SD 39.2 LAB L100.1900 150-450 K/mm3 Normal PLT 213 LAB L100.2000 6.2-12.0 fl Normal MPV 9.8 Performed By: #### L100.0500 #### [facility] [address] [place], [address] PATHOLOGY SPECIMEN OB Collected: 08/17/2018 Status: F Source: [place] 1:14 PM [facility] REPOSITORY Order Comment: Comments: SUTURE IN RIGHT TUBE Send Specimen For (Specify): Studies @ [facility] Lab:Routine Time of Procedure: 1221 Date of Procedure: 08/17/18 Reason specimen being sent to pathology (Hx/complications): ROUTINE Type of specimen: Fallopian Tube Type of procedure performed: Tubal Ligation TYPE CODE TESTS RESULT OUT OF RANGE REFERENCE UNITS LAB L350.1800 SEE Normal PATH. PATHOLOGY Spec. OB REPORT Result Comment: Specimen submitted to Anatomical Pathology Department for testing. Performed By: #### L350.1800 #### [facility] [address] [place], [address] FALLOPIAN TUBES/STERILIZATION Observed: 08/17/2018 Status: F Source: [place] 12:22 PM [facility] REPOSITORY Patient: BRIA BARRY : 1985 (33/F) Acct Num: [id number] Phys: Artie Betancourt MD Unit Num: [id number] Loc: [facility] PS577-3 Specimen: [id number] Received: 08/17/18 - 9 Spec Type: FALL TUBES TISSUES 1 TISSUES: Fallopian tube GROSS DESCRIPTION Received is one container labeled with the patient's name and designated left fallopian tube with suture, right fallopian tube no suture. The specimen consists of two tubular pieces of centeno soft tissue with the left tube identified by a suture and measures 4.5 cm in length and 0.5 cm in diameter. The right tube without suture measures 2 cm in length and 0.5 cm in diameter. A paratubal cyst is noted adjacent to the right fallopian tube measuring 1.5 cm in greatest dimension. The entire specimen is submitted in two cassettes as follows: 1 - right fallopian tube, 2 - left fallopian tube. Both pieces will be sectioned at the time of embedding. / SJ:jason 08/17/18 TC:5 CPT: 67652 x2 HEADER OPERATION: Tubal ligation PRE-OP DIAGNOSIS: Desired sterilization TISSUE SUBMITTED: Fallopian tubes, suture in right tube MICROSCOPIC DESCRIPTION Slides are reviewed. MICROSCOPIC DIAGNOSIS Right and left fallopian tubes, bilateral salpingectomies: Complete segment of right fallopian tube with benign paratubal cyst. Complete segment of left fallopian tube with benign paratubal cyst. AM:jason 08/18/18 Signed [facility] 08/18/18 <signature on file> Performed By: #### PFALS #### [facility] [address] [facility] [place], [address] CBC W/DIFF, AUTOMATED Collected: 08/17/2018 Status: F Source: [place] 11:15 AM [facility] REPOSITORY TYPE CODE TESTS RESULT OUT OF RANGE REFERENCE UNITS LAB L100.1000 4.4-11.0 K/mm3 Normal WBC 10.1 LAB L100.1200 4.2-5.4 M/mm3 Normal RBC 4.31 LAB L100.1300 12.0-15.0 g/dl Normal HGB 12.2 LAB L100.1400 37-47 % Low HCT 36.3 LAB L100.1500 81-99 fL Normal MCV 84.2 LAB L100.1600 27.0-32.0 pg Normal MCH 28.3 LAB L100.1700 32-36 g/gl Normal MCHC 33.6 LAB L100.1810 11.6-14.6 % Normal RDW CV 12.5 LAB L100.1820 35.1-43.9 fl Normal RDW SD 37.9 LAB L100.1900 150-450 K/mm3 Normal PLT 241 LAB L100.2000 6.2-12.0 fl Normal MPV 10.3 LAB L100.2100 47-70 % High NEUT% 77.3 LAB L100.2200 19-41 % Low LY% 14.6 LAB L100.2300 0-10 % Normal MONO% 7.0 LAB L100.2400 0-5 % Normal EO% 0.3 LAB L100.2500 0-1 % Normal BASO% 0.1 LAB L100.2550 0.0-0.9 % Normal IM GRAN % 0.700 Result Comment: IG% - Immature Granulocytes (promyelocytes, myelocytes and metamyelocytes) > 1% indicates that a LEFT SHIFT is Present. LAB L100.2620 2.0-7.7 X10 3/uL High Absolute Neut 7.8 LAB L100.2720 0.83-4.51 X10 3/ul Normal Absolute Lymph 1.48 Performed By: #### L100.0100 #### [facility] [address] [facility] [place], [place], [id number] PROTHROMBIN TIME W/INR Collected: 08/17/2018 Status: F Source: [place] 11:15 AM [facility] REPOSITORY TYPE CODE TESTS RESULT OUT OF RANGE REFERENCE UNITS LAB L300.4150 11.7-14.9 SECONDS Normal PROTIME 13.5 LAB L300.4200 Normal INR 1.0 Performed By: #### L300.3900, L300.4310 #### [facility] [address] [facility] [place], [place], [id number] PARTIAL THROMBOPLAST Collected: 08/17/2018 Status: F Source: [place] TIME 11:15 AM [facility] REPOSITORY TYPE CODE TESTS RESULT OUT OF RANGE REFERENCE UNITS LAB L300.4310 24.1-36.2 Seconds Normal PTT 25.7 Performed By: #### L300.3900, L300.4310 #### [facility] [address] [facility] [place], [place], [address] TYPE AND SCREEN Collected: 08/17/2018 Status: F Source: [place] 11:15 AM [facility] REPOSITORY Order Comment: Reason for Type AND Screen/Red Cells: SURGERY Type of Surgery: TYPE CODE TESTS RESULT OUT OF RANGE REFERENCE UNITS LAB B10.0800 A Normal BLOOD TYPE GEL POSITIVE LAB B100.4000 Normal Antibody NEGATIVE Screen Performed By: #### B101.7450 #### [facility] [address] [facility] [place], [place], [address] GROUP B STREP DNA Collected: 07/23/2018 Status: F Source: [place] BY PCR 11:30 AM [facility] REPOSITORY Order Comment: Source: Vaginal-Rectal TYPE CODE TESTS RESULT OUT OF REFERENCE UNITS RANGE LAB L8200.0100 Negative High GBS TEST POSITIVE RESULT Result Comment: Penicillin is the recommended antibiotic for the treatment of Group B Streptococcal disease. In case of penicillin allergy, susceptibility testing for Clindamycin and Erythromycin is suggested by request. Performed By: #### L8200.0000 #### [facility] [address] [facility] [place], [place], [id number] CBC-COMPLETE BLOOD CNT Collected: 05/28/2018 Status: F Source: [place] NO DIFF 10:20 AM [facility] REPOSITORY TYPE CODE TESTS RESULT OUT OF RANGE REFERENCE UNITS LAB L100.1000 4.4-11.0 K/mm3 Normal WBC 9.6 LAB L100.1200 4.2-5.4 M/mm3 Low RBC 3.88 LAB L100.1300 12.0-15.0 g/dl Low HGB 11.0 LAB L100.1400 37-47 % Low HCT 33.3 LAB L100.1500 81-99 fL Normal MCV 85.8 LAB L100.1600 27.0-32.0 pg Normal MCH 28.4 LAB L100.1700 32-36 g/gl Normal MCHC 33.0 LAB L100.1810 11.6-14.6 % Normal RDW CV 12.9 LAB L100.1820 35.1-43.9 fl Normal RDW SD 39.6 LAB L100.1900 150-450 K/mm3 Normal PLT 255 LAB L100.2000 6.2-12.0 fl Normal MPV 10.3 Performed By: #### L100.0500 #### [facility] [address] [place], [place], [id number] GLUCOSE CHALLENGE GEST Collected: 05/28/2018 Status: F Source: [place] 1H 50G 10:20 AM [facility] REPOSITORY TYPE CODE TESTS RESULT OUT OF RANGE REFERENCE UNITS LAB L501.0250 70-140 mg/dL Normal GLU GEST 88 50g 1H Performed By: #### L501.0250 #### [facility] [address] [place], [place], [address] URINE DRUG SCREEN Collected: 02/09/2018 Status: F Source: [place] (VISTA) 11:08 AM [facility] REPOSITORY Order Comment: List of Drugs Taken or Suspected? UNK TYPE CODE TESTS RESULT OUT OF RANGE REFERENCE UNITS LAB L505.0075 TO BE Normal CONFIRMED Result Comment: CONFIRMATORY TESTING FOR ALL POSITIVE URINE DRUG SCREEN RESULTS WILL ONLY BE SENT OUT UPON PHYSICIAN ORDER. VISTA Urine Drug Screen methods provide only preliminary analytical test results. A more specific alternate chemical method must be used in order to obtain a confirmed analytical result. Gas chromatography/mass spectrometery (GC/MS) is the preferred confirmatory method. Clinical consideration and professional judgement should be applied to any drug of abuse test result, particularly when preliminary positive results are used. URINE TCA TESTING MUST BE ORDERED SEPARATELY. USE TEST MNEMONIC: [facility] LAB L505.5005 VISTA UDS PH 7 Normal LAB L505.5015 <1000 ng/mL AMPHETAMINES Normal NEGATIVE LAB L505.5025 < 200 ng/mL BARBITIURATES Normal NEGATIVE LAB L505.5035 < 200 ng/mL BENZODIAZIPINE Normal NEGATIVE LAB L505.5045 < 300 ng/mL COCAINE Normal NEGATIVE LAB L505.5055 < 500 ng/mL ECSTACY Normal NEGATIVE LAB L505.5065 < 300 ng/mL METHADONE Normal NEGATIVE LAB L505.5075 < 300 ng/mL OPIATES Normal NEGATIVE LAB L505.5085 < 25 ng/mL PCP Normal NEGATIVE LAB L505.5095 < 50 ng/mL THC Normal NEGATIVE Performed By: #### L505.5000 #### [facility] [address] [place], [address] URINALYSIS, ROUTINE Collected: 02/09/2018 Status: F Source: [place] (DIPSTICK) 11:08 AM [facility] REPOSITORY Order Comment: How was Urine Obtained? Urine, Random TYPE CODE TESTS RESULT OUT OF RANGE REFERENCE UNITS LAB L400.3000 Yellow COLOR Normal Yellow LAB L400.3050 Clear Normal CLARITY Clear LAB L400.3200 Normal mg/dl Normal GLUCOSE, UR Normal LAB L400.3300 Negative mg/dL Normal BILIRUBIN URINE Negative LAB L400.3400 Negative mg/dl Normal KETONE UR Negative LAB L400.3465 1.002-1.030 Normal SP.GR. DIPSTX 1.005 LAB L400.3550 5.0 - 8.0 pH UR Normal 7.0 LAB L400.3600 Negative mg/dl PROT Normal DIPSTX Negative LAB L400.3700 Normal mg/dl Normal UROBILI Normal LAB L400.3750 Negative Normal NITRITE UR Negative LAB L400.3780 Negative /ul Normal OCCULT BLOOD-UR Negative LAB L400.3800 Negative /ul LEUK Normal ESTERASE Negative Performed By: #### L400.2010 #### [facility] [address] [place], [address] CBC W/DIFF, AUTOMATED Collected: 02/09/2018 Status: F Source: [place] 11:08 AM [facility]POSITORY TYPE CODE TESTS RESULT OUT OF RANGE REFERENCE UNITS LAB L100.1000 4.4-11.0 K/mm3 Normal WBC 7.4 LAB L100.1200 4.2-5.4 M/mm3 Normal RBC 4.25 LAB L100.1300 12.0-15.0 g/dl Low HGB 11.8 LAB L100.1400 37-47 % Low HCT 34.7 LAB L100.1500 81-99 fL Normal MCV 81.6 LAB L100.1600 27.0-32.0 pg Normal MCH 27.8 LAB L100.1700 32-36 g/gl Normal MCHC 34.0 LAB L100.1810 11.6-14.6 % Normal RDW CV 12.7 LAB L100.1820 35.1-43.9 fl Normal RDW SD 37.4 LAB L100.1900 150-450 K/mm3 Normal PLT 259 LAB L100.2000 6.2-12.0 fl Normal MPV 10.7 LAB L100.2100 47-70 % High NEUT% 76.5 LAB L100.2200 19-41 % Low LY% 16.3 LAB L100.2300 0-10 % Normal MONO% 6.5 LAB L100.2400 0-5 % Normal EO% 0.1 LAB L100.2500 0-1 % Normal BASO% 0.3 LAB L100.2550 0.0-0.9 % Normal IM GRAN % 0.300 Result Comment: IG% - Immature Granulocytes (promyelocytes, myelocytes and metamyelocytes) > 1% indicates that a LEFT SHIFT is Present. LAB L100.2620 2.0-7.7 X10 3/uL Normal Absolute Neut 5.6 LAB L100.2720 0.83-4.51 X10 3/ul Normal Absolute Lymph 1.20 Performed By: #### L100.0100 #### [facility] [address] [facility] [place], [address] THYROID STIM HORMONE Collected: 02/09/2018 Status: F Source: [place] (TSH) 11:08 AM [facility] REPOSITORY TYPE CODE TESTS RESULT OUT OF RANGE REFERENCE UNITS LAB L501.9520 0.358-3.74 uIU/mL Normal TSH 0.49 Performed By: #### L501.9520 #### [facility] [address] [facility] [place], [address] T AND S-NO Collected: 02/09/2018 Status: F Source: [place] CHARGE W/PNP 11:08 AM [facility] REPOSITORY Order Comment: Reason for Type AND Screen/Red Cells: Surgery? N TYPE CODE TESTS RESULT OUT OF RANGE REFERENCE UNITS LAB B10.0800 A Normal BLOOD POSITIVE TYPE GEL LAB B100.4050 Normal Ab SCREEN NEGATIVE GEL Performed By: #### B100.7550 #### [facility] [address] [facility] [place], [place], [id number] HEPATITIS B SURFACE Collected: 02/09/2018 Status: F Source: [place] 11:08 AM [facility] REPOSITORY TYPE CODE TESTS RESULT OUT OF RANGE REFERENCE UNITS LAB L3100.0400 Negative Normal HB Negative SURF AG Result Comment: Performed at: [address] [id number] [employer]: Rob Rivera PhD, Phone: [phone] Performed By: #### L3100.0390, L3100.0625 #### [facility] (refer to report for specific site) refer to report for address and phone number HEPATITIS C ANTIBODIES Collected: 02/09/2018 Status: F Source: [place] 11:08 AM [facility] REPOSITORY TYPE CODE TESTS RESULT OUT OF RANGE REFERENCE UNITS LAB L3100.0650 0.0-0.9 s/co ratio Normal HEP C AB <0.1 Result Comment: Negative: < 0.8 Indeterminate: 0.8 - 0.9 Positive: > 0.9 The CDC recommends that a positive HCV antibody result be followed up with a HCV Nucleic Acid Amplification test (055060). Performed By: #### L3100.0390, L3100.0625 #### [facility] (refer to report for specific site) refer to report for address and phone number RUBELLA IGG Collected: 02/09/2018 Status: F Source: [place] 11:08 [facility] REPOSITORY TYPE CODE TESTS RESULT OUT OF RANGE REFERENCE UNITS LAB L509.4000 IU/mL Normal Rubella IgG 65.0 Result Comment: Antibody results Interpretation of Immune Status < 5 IU/ml Presumed Non-immune 5 - < 10 IU/ml Equivocal > or = 10 IU/ml Presumed Immune Performed By: #### L509.4000, L3890.6005 #### [facility] [address] [place], [place], [id number] HIV - [facility] Collected: 02/09/2018 Status: F Source: [place] 11:08 [facility] REPOSITORY TYPE CODE TESTS RESULT OUT OF RANGE REFERENCE UNITS LAB L3890.6005 Nonreactive Normal HIV - [facility] Non-Reactive Performed By: #### L509.4000, L3890.6005 #### [facility] [address] [place], [address] RPR Collected: 02/09/2018 Status: F Source: [place] 11:08 [facility] REPOSITORY TYPE CODE TESTS RESULT OUT OF REFERENCE UNITS RANGE LAB L700.5100 NONREACTIVE Normal RPR NONREACTIVE Performed By: #### L700.5100 #### [facility] [address] [place], [address] CT/NG [facility] BY PCR Collected: 01/25/2018 Status: F Source: [place] 11:15 AM [facility] REPOSITORY TYPE CODE TESTS RESULT OUT OF RANGE REFERENCE UNITS LAB L8200.2100 Negative Normal Chlam Negative Trac PCR LAB L8200.2200 Negative Normal NG by Negative PCR Performed By: #### L8200.2000 #### [facility] [address] [place], [address] PAP I-G W/RFX HRHPV Collected: 01/25/2018 Status: F Source: [place] 11:15 AM [facility] REPOSITORY Order Comment: CYTOLOGY INFORMATION: - CLINICAL INFORMATION: - DATE LMP/MENOPAUSE: NO LMP GIVEN LMP - COLLECTION VIAL: Thin Prep Vial - HEEL SEAT FILLER SOURCE: CERVICAL/ENDOCERVICAL - COLLECTION TECHNIQUE: BRUSH/SPATULA Specimen Comment: [id number] Specimen Comment: No. of containers..01 ThinPrep Vial TYPE CODE TESTS RESULT OUT OF RANGE REFERENCE UNITS LAB L7400.0800 . Normal DIAGN Comment Result Comment: NEGATIVE FOR INTRAEPITHELIAL LESION AND MALIGNANCY. LAB L7400.0900 . Normal ADEQ Comment Result Comment: Satisfactory for evaluation. No endocervical component is identified. An endocervical component is not commonly seen in the patient. LAB L7400.1400 . Normal PERFORM Comment Result Comment: Ghada Louis, College Director (ASCP) LAB L7400.2575 . Normal TEST METHOD Comment Result Comment: This liquid based ThinPrep(R) pap test was screened with the use of an image guided system. LAB L7400.2600 . Normal . COMM LAB L7400.2700 . Normal PAPSMR Comment Result Comment: The Pap smear is a screening test designed to aid in the detection of premalignant and malignant conditions of the uterine cervix. It is not a diagnostic procedure and should not be used as the sole means of detecting cervical cancer. Both false-positive and false-negative reports do occur. LAB L7400.2800 . Normal HPV RFLX Comment Result Comment: The HPV DNA reflex criteria were not met with this specimen result therefore, no HPV testing was performed. Performed at: [address] [id number] [employer]: Geri Garibay MD, Phone: [phone] Performed By: #### L7400.0350 #### [facility] (refer to report for specific site) refer to report for address and phone number ALLERGIES ALLERGIES DATE TYPE / CODE NAME / CODE REACTION SEVERITY SOURCE 08/17/2018 Drug No Known Unknown Kartik [facility] Allergy/4160 Allergies/F00 Hospital [address]70(SNOMED [id number](RXNOR Repository CT) M) ENCOUNTERS ENCOUNTERS ADMIT/DISCHARGE ACCOUNT ADMITTING ENCOUNTER LOCATION SOURCE NUMBER CLASS 08/17/2018/ [id number] [place] Artie Inpatient Hillister Hillister 8 0 Encounter [facility] ing:WPRoom: Repository SD234Rda: 1 07/23/2018 [id number] Ambulatory Kartik Hillister 9 [facility] ing:LABSPEC Repository 05/28/2018 [id number] Ambulatory [place]ister Kartik 2 [facility] ing:LABSPEC Repository 02/09/2018 [id number] Ambulatory [place] Kartik 4 [facility] ing:WOBLAB Repository 01/25/2018 [id number] Ambulatory Hillister Hillister 8 [facility] ing:LABSPEC Repository PAYERS PAYERS ENCOUNTER GUARANTOR PAYER SUBSCRIBER SOURCE 08/17/2018 BRIA SALAZAR Primary BRIA [id number] [facility]: [address] icy Number: [id number] [address]Ebf: [id number] Repository Date:5111-48-21[address], [place] [address]TJ: 08/17/2018 Secondary NOT GIVENUNK Hillister Insurance:SELF PAY [facility] Number: Effective Repository Date:2018-07-26 07/23/2018 Bria Salazar Primary Bria Verdugo [id number] [facility] icy Number: [id number] [id number] [place]ository [place] [address]Lsj: Date:3861-43-28[address], [place] ([place]) [address]SD: 07/23/2018 Secondary NOT GIVENUNK Kartik Insurance:SELF PAY [facility]: Effective Repository Date:2018-07-23 05/28/2018 Bria Salazar Primary Bria [id number] Insurance:AULTCAREPol MorrisDOB: [facility] [address] icy Number: [id number], [id number] Repository [place] [address]Jnq: Date:2483-94-72[address], [place] () [address]HD: 05/28/2018 Secondary NOT GIVENUNK Kartik Insurance:SELF PAY [facility] Number: Effective Repository Date:2018-05-28 02/09/2018 Bria Verdugo [id number] Insurance:AULTCAREPol MorrisDOB: [facility] [address] icy Number: [id number], [id number] Repository [place] [address]Yll: Date:8228-15-17[address], [place] () [address]QK: 02/09/2018 Secondary NOT GIVENUNK Hillister Insurance:SELF PAY [facility] Number: Effective Repository Date:2018-02-09 01/25/2018 Bria Verdugo [id number] Insurance:AULTCAREPol MorrisDOB: [facility] [address] icy Number: [id number], [id number] Repository [place] [address]Rei: Date:8066-62-53BJ [address], [place] () [address]JE: 01/25/2018 Secondary NOT GIVENUNK Hillister Insurance:SELF PAY [facility] Number: Effective Repository Date:2018-01-25
== END 2018-08-19 14:00 | disposition home or self-care (01) | DRG 785 ==
PROVIDERS: Admitting Provider Obstetrics & Gynecology; Referring Provider Obstetrics & Gynecology; Visit Provider Obstetrics & Gynecology
PROC: 10D00Z1 Extraction of Products of Conception, Low, Open Approach (ICD-10-PCS; CPT 59514; principal; 2018-08-17 11:45)
DX: O34.211 Maternal care for low transverse scar from previous cesarean delivery (principal); Z30.2 Encounter for sterilization; N83.8 Other noninflammatory disorders of ovary, fallopian tube and broad ligament; Z87.891 Personal history of nicotine dependence; Z3A.39 39 weeks gestation of pregnancy; Z37.0 Single live birth
CPT/HCPCS: 85025; 85027; 85610; 85730; 86850; 86900; 88302; 99218; J7120; A4216; G0378